=== PATIENT | male | born 1980 | race Caucasian/White ===

== ENCOUNTER → 2019-09-09 22:10 | Outpatient (CLI) | payer MEDICAID, SELFPAY ==
[2019-09-09 18:29] VITALS: BMI 36.4
[2019-09-09 22:27] LABS: Absolute Lymphocyte Count 3.13 X10^3/uL (0.83-4.51); Absolute Neutrophil Count 3.9 X10^3/uL (2.0-7.7); Basophil# 0.09 X10^3/uL; Basophil% 1.1 % (0-1); Eosinophil# 0.37 X10^3/uL; Eosinophils% 4.4 % (0-5); Hematocrit 43.2 % (40-54); Hemoglobin 14.5 g/dL (13.0-16.5); Lymphocyte # 3.13 X10^3/ul (4.0); Lymphocyte % 37.1 % (19-41); Mean Corp Hgb Conc 33.6 g/dL (32-36); Mean Corpuscular Hgb 29.2 pg (27.0-32.0); Mean Corpuscular Volume 86.9 fL (80-94); Mean Platelet Vol. 11.1 fl (6.2-12.0); Monocyte# 0.88 X10^3/uL; Monocyte% 10.4 % (0-10); NRBC Flagged by Analyzer 0 % (0-5); Neutrophil # 3.94 X10^3/uL (2.7-7.7); Neutrophil % 46.8 % (47-70); Platelet Count 230 K/mm3 (150-450); RBC Distribution Width CV 12.3 % (11.6-14.6); RBC Distribution Width SD 39.4 fl (35.1-43.9); Red Blood Count 4.97 M/mm3 (4.6-6.2); White Blood Count 8.4 K/mm3 (4.4-11.0)
[2019-09-09 23:12] LABS: ALB/GLOB Ratio 1.1 RATIO (0.9-2.4); AST(SGOT) 16 U/L (15-37); Alanine Aminotransfer ALT/SGPT 31 U/L (16-61); Albumin, Serum 3.9 g/dL (3.2-5.0); Alkaline Phosphatase 61 U/L (45-117); Anion Gap 4 (5-15); BUN 15 mg/dL (7-18); BUN/Creat Ratio 20.5 RATIO (10-20); Calcium,Total 8.8 mg/dL (8.5-10.1); Chloride 102 mmol/L (98-107); Cholesterol 182 mg/dL (200); Creatinine, Serum 0.73 mg/dL (0.70-1.30); EST Glomerular Filtration Rate 128 mL/min (>60); Est Glom Filt Rate - Afr Amer 155 mL/min (>60); Globulin 3.6 g/dL (2.2-4.2); Glucose 90 mg/dL (74-106); High Density Lipoprotein 35 mg/dL; Potassium 4.6 mmol/L (3.5-5.1); Protein, Total 7.5 g/dL (6.4-8.2); Sodium Level 137 mmol/L (136-145); Triglycerides 579 mg/dL
== END ==
PROVIDERS: Referring Provider Nurse Practitioner; Visit Provider Nurse Practitioner
DX: I10 Essential (primary) hypertension (principal); E78.1 Pure hyperglyceridemia
CPT/HCPCS: 80053; 80061; 85025

== ENCOUNTER → 2020-03-23 | Outpatient (CLI) | payer MEDICAID, SELFPAY ==
[2020-03-23 19:03] VITALS: BMI 38.1
[2020-03-23 22:41] LABS: ALB/GLOB Ratio 1.1 RATIO (0.9-2.4); AST(SGOT) 27 U/L (15-37); Alanine Aminotransfer ALT/SGPT 29 U/L (16-61); Albumin, Serum 3.9 g/dL (3.2-5.0); Alkaline Phosphatase 58 U/L (45-117); Anion Gap 5 (5-15); BUN 18 mg/dL (7-18); Calcium,Total 8.4 mg/dL (8.5-10.1); Chloride 109 mmol/L (98-107); Cholesterol 184 mg/dL (200); EST Glomerular Filtration Rate 72 mL/min (>60); Est Glom Filt Rate - Afr Amer 88 mL/min (>60); Globulin 3.4 g/dL (2.2-4.2); Glucose 101 mg/dL (74-106); High Density Lipoprotein 32 mg/dL; Potassium 3.7 mmol/L (3.5-5.1); Protein, Total 7.3 g/dL (6.4-8.2); Sodium Level 140 mmol/L (136-145); Triglycerides 497 mg/dL
== END | disposition home or self-care (01) ==
PROVIDERS: Referring Provider Nurse Practitioner; Visit Provider Nurse Practitioner
DX: E78.1 Pure hyperglyceridemia (principal); I10 Essential (primary) hypertension
CPT/HCPCS: 80053; 80061

== ENCOUNTER → 2020-10-17 | Outpatient (CLI) | payer MEDICAID, SELFPAY ==
[2020-04-19 15:10] VITALS: BMI 37.7
[2020-10-17 22:47] LABS: Absolute Lymphocyte Count 2.97 X10^3/uL (0.83-4.51); Absolute Neutrophil Count 4.6 X10^3/uL (2.0-7.7); Basophil% 1.1 % (0-1); Eosinophil# 0.41 X10^3/uL; Eosinophils% 4.4 % (0-5); Hemoglobin 12.7 g/dL (13.0-16.5); Lymphocyte # 2.97 X10^3/ul (4.0); Lymphocyte % 31.8 % (19-41); Mean Corp Hgb Conc 32.6 g/dL (32-36); Mean Corpuscular Hgb 29.2 pg (27.0-32.0); Mean Corpuscular Volume 89.7 fL (80-94); Monocyte# 1.22 X10^3/uL; Monocyte% 13.1 % (0-10); NRBC Flagged by Analyzer 0 % (0-5); Neutrophil % 49.3 % (47-70); Platelet Count 243 K/mm3 (150-450); RBC Distribution Width SD 42.6 fl (35.1-43.9); Red Blood Count 4.35 M/mm3 (4.6-6.2); White Blood Count 9.3 K/mm3 (4.4-11.0)
[2020-10-17 22:58] LABS: ALB/GLOB Ratio 1.2 RATIO (0.9-2.4); AST(SGOT) 20 U/L (15-37); Alanine Aminotransfer ALT/SGPT 29 U/L (16-61); Albumin, Serum 4.2 g/dL (3.2-5.0); Alkaline Phosphatase 59 U/L (45-117); Anion Gap 3 (5-15); BUN 15 mg/dL (7-18); BUN/Creat Ratio 15.6 RATIO (10-20); Calcium,Total 8.8 mg/dL (8.5-10.1); Chloride 105 mmol/L (98-107); Cholesterol 172 mg/dL (200); Creatinine, Serum 0.96 mg/dL (0.70-1.30); EST Glomerular Filtration Rate 93 mL/min (>60); Est Glom Filt Rate - Afr Amer 113 mL/min (>60); Globulin 3.5 g/dL (2.2-4.2); Glucose 80 mg/dL (74-106); High Density Lipoprotein 36 mg/dL; Potassium 3.9 mmol/L (3.5-5.1); Protein, Total 7.7 g/dL (6.4-8.2); Sodium Level 138 mmol/L (136-145); Triglycerides 311 mg/dL; Very Low Density Lipoprotein 62 mg/dL (5-40)
== END | disposition home or self-care (01) ==
PROVIDERS: Referring Provider Nurse Practitioner; Visit Provider Nurse Practitioner
DX: I10 Essential (primary) hypertension (principal); E78.1 Pure hyperglyceridemia
CPT/HCPCS: 80053; 80061; 85025

== ENCOUNTER → 2020-11-04 08:56 | Outpatient (CLI) | payer MEDICAID, SELFPAY ==
[2020-10-23 11:01] VITALS: BMI 38.0
--- NOTE | 2020-11-04 08:58 | MRI_ITS ---
STUDY: MRI LEFT KNEE REASON FOR EXAM: Male, 39 years old. Pain, instability. TECHNIQUE: Standardized fat and water weighted pulse sequences were obtained in all 3 orthogonal planes. COMPARISON: X-ray 10/23/2020. FINDINGS: 5 mm tear of the meniscal body extending to superior and inferior articular surfaces. Normal hyaline cartilage of the medial femorotibial compartment. Normal medial femoral condyle and tibial plateau. Normal medial collateral ligamentous complex (MCL). Normal distal semimembranosus, gracilis and semitendinosus tendons. Normal lateral meniscus. Normal hyaline cartilage of the lateral femorotibial compartment. Normal lateral femoral condyle and tibial plateau. Normal proximal tibiofibular articulation. Normal lateral collateral (fibular) ligament. Normal popliteus tendon. Normal biceps femoris tendon. Normal anterior cruciate ligament (ACL). Normal posterior cruciate ligament (PCL). Normal congruent patellofemoral articulation. Normal hyaline cartilage of the patellofemoral compartment. Normal medial and lateral patellar retinaculum. Normal quadriceps tendon. Normal patellar tendon. Small joint effusion. The soft tissues are unremarkable. The otherwise visualized osseous structures are unremarkable. MRI/Lower Ext Joint Only (Routine) IMPRESSION: 1. Medial meniscal tear. 2. Joint effusion. Electronically Signed: Mercy Hale MD at 22:14 EST Tel , Service support ,
== END ==
PROVIDERS: PCP Nurse Practitioner; Referring Provider Orthopaedic Surgery; Visit Provider Orthopaedic Surgery
DX: S83.241A Other tear of medial meniscus, current injury, right knee, initial encounter (principal); M25.561 Pain in right knee
CPT/HCPCS: 73721

== ENCOUNTER 2020-11-28 07:11 | Day surgery (SDC) | payer MEDICAID, SELFPAY ==
[2020-10-23 11:01] VITALS: BMI 38.0
[2020-11-28] VITALS (7 sets, daily range): BP systolic 114–147; BP diastolic 59–82; PULSE 69–89; RESP 16–18; TEMP 36.3–37.9; O2SAT 93–100; BMI 35.9
[2020-11-28] MEDS: Lactated Ringers 1,000 ML 100 ML IV (07:53)
--- NOTE | 2020-11-28 10:28 | HP.PCM_ITS ---
History and Physical Date of Admission: 11/28/20 Intake Intake Visit Reasons: Left knee Is patient in pain?: Yes Allergies grass pollen Allergy (Mild, Verified 11/20/20 09:42) Itching, asthma attack ragweed pollen Allergy (Mild, Verified 11/20/20 09:42) Itching, asthma attack tree and shrub pollen Allergy (Mild, Verified 11/20/20 09:42) Itching, asthma attack bupropion Adverse Reaction (Severe, Verified 11/20/20 09:42) anger PFSH Medical History GERD (gastroesophageal reflux disease) (Acute) Hypertriglyceridemia (Acute) Metabolic syndrome (Acute) Opioid abuse, in remission (Acute) Hypertension (Chronic) Surgical History (Updated 10/23/20 @ 11:09 by Columba Mendoza) H/O rotator cuff surgery (Acute) Family History (Updated 10/23/20 @ 11:10 by Columba Mendoza) Mother Hypertension Grandmother Hypertension Grandfather Hypertension Aunt Hypertension Uncle CVA (cerebral vascular accident) Other Crohn's colitis Diverticulitis Family history of high cholesterol Heart disease IBS (irritable bowel syndrome) Migraine Osteoarthritis Social History (Updated 11/20/20 @ 11:[address] Jameson Lamb, ) household members: spouse, children housing: house current occupational status: employed Smoking Status: Current every day smoker tobacco type: cigarettes alcohol intake: current alcohol intake frequency: 0-2 drinks per day what type of physical activity do you participate in: none do you feel safe at home: Yes HPI Left knee: Details: Parts of this documentation were recorded by a scribe, this documentation accurately reflects the service provided and the decisions made by me, Dr. Jameson Lamb DO 11/20/20 [id number]. MAXINE SCHAEFER is a 39 year old M here today for a followup after left knee MRI. Patient notes that he continues to have knee pain and continues to have the same symptoms. He has knee popping and instability. Patient notes that he has increased pain with twisting. He had an MRI which is here for review. ROS Musc Reports joint pain, Denies numbness, Denies tingling Skin/Breast Reports system reviewed and no additional complaints, except as docu Neuro Yes system reviewed and no additional complaints, except as docu, No numbness, No tingling Ortho Exam Left Knee Skin/Wound: Yes CDI, No ecchymosis, No erythema, No swelling Examination: Yes med jt line tenderness, Yes Pain with flexion Supplemental Info 11/04/2020 MRI left knee: as read by radiologist 5 mm tear of the meniscal body extending to the superior and inferior articular surfaces, joint effusion Assessment & Plan Problems 1. Other tear of medial meniscus of left knee as current injury, subsequent encounter S83.940D Plan Educated the patient about the anatomy of the knee and etiology of his pain. Sp paz with him about his options- recommended an arthroscopy for a meniscus repair vs menisectomy. He is will be non-weightbearing for 6 weeks with a meniscus repair. Reviewed the pre-operative plans with the patient. Risks and benefits of the procedure were fully explained, including but not limited to infection, neurovascular injury, continued pain, arthritis, stiffness, need for further surgery, re-injury, DVT, PE, general risks of anesthesia, and loss of limb or life. The patient understands all the risks and does wish to proceed with written consent. Follow up 2 week post op or sooner if pain, swelling, numbness or associated symptoms, or concerns develop. All questions answered. Patient in agreement of plan. Coding Level of Care Code Off vis,est,level 3 Diagnoses Other tear of medial meniscus of left knee as current injury, subsequent encounter S83.321D ??Encounter type: subsequent encounter ??Meniscus tear of knee type: other type ??Tear current or old: current I have re-examined the patient. There are no clinical changes since date of exam Procedure Criteria Procedure Type: Elective COVID Risk Discussion: The surgeon/proceduralist and patient have discussed in detail the risk of exposure to and/or potential harm posed by the COVID-19 virus with having a surgery/procedure at this time versus the risk of delaying the surgery/procedure. It is not possible to know either the risk of delaying the surgery or procedure or chance of getting an infection with perfect accuracy, but a joint decision was made between the patient and the surgeon/proceduralist to proceed at this time with the scheduled surgery/procedure as indicated on the consent form.
[2020-11-28] MEDS: Epinephrine (1 mg/ml) 1 MG/ML VIAL (11:17)
[2020-11-28] MEDS: MethylPREDNISolone Acetate 40 MG/ML Vial IM (11:18)
[2020-11-28] MEDS: Bupiv/Epi 0.25% 30 ML Vial (11:18)
[2020-11-28] MEDS: Bupivacaine 0.5% PF 10 ML VIAL (11:18)
--- NOTE | 2020-11-28 11:21 | PCM.DC.ORTHO ---
Discharge Diet: No Restrictions Weight Bearing Status: Weight bearing as tolerated Call your doctor if you observe: Shortness of breath, Chest pain Additional Instructions: Ice and elevate next 72 hours .keep dressing on clean and dry for 48 hours then may remove begin showering daily but do not submerge in tub or pool. Must keep incisional area is clean until completely healed . after shower may apply Band-Aids . Encourage knee range of motion weightbearing as tolerated, use crutches until confident in knee then may discontinue. No strenuous activity. When not ambulating keep iced and elevated next 72 hours. No pain medication was prescribed based on patient request please take Motrin 600 mg every 8 hours and Tylenol 1000 mg every 6 hours to control pain Allergies/Adverse Reactions: Allergies grass pollen Allergy (Mild, Verified 11/27/20 09:01) Itching, asthma attack ragweed pollen Allergy (Mild, Verified 11/27/20 09:01) Itching, asthma attack tree and shrub pollen Allergy (Mild, Verified 11/27/20 09:01) Itching, asthma attack bupropion Adverse Reaction (Severe, Verified 11/27/20 09:01) anger Medications to take at Discharge multivitamin with minerals-folic acid 200 mcg chewable tablet 200 mcg PO DAILY tab 09/24/18 albuterol sulfate 90 mcg/actuation aerosol inhaler 2 puff INHALATION Q4H PRN 30 Days #8 g 09/09/19 amlodipine 5 mg tablet 5 mg PO DAILY #30 tab 10/17/20 famotidine 40 mg tablet 40 mg PO DAILY #30 tab 10/17/20 fenofibrate nanocrystallized 145 mg tablet 145 mg PO DAILY #30 tab 10/17/20 lisinopril 40 mg tablet 40 mg PO DAILY #30 tab 10/17/20 omega-3 fatty acids 1,000 mg capsule 2,000 mg PO BID #360 cap 10/17/20 aspirin 81 mg tablet,delayed release 81 mg PO DAILY 10/23/20 Lansoprazole 30 mg PO QHS 11/27/20 Primary Care Physician: Grace Stephens INTENSIVE CARE UNIT REGISTERED NURSE, INTENSIVE CARE UNIT REGISTERED NURSE-C [Primary Care Provider] - Test Results: Test results from this visit will be discussed in further detail at your follow-up appointment, if applicable.
--- NOTE | 2020-11-28 11:31 | OP.PCM_ITS ---
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 Risk benefits and alternatives of the procedure were reviewed including risk of bleeding infection nerve artery tissue damage need for further surgery continued pain and expected postoperative course. Procedure: The patient was met in the preoperative holding area. The operative extremity was identified by both patient and physician and family and marked. Patient was brought back to the operating room on a wheeled cart and transferred to the operating table in the supine position. Anesthesia was started. A well- padded tourniquet was placed on the operative extremity. A lower extremity leg dubon was secured to the operative extremity. The contralateral extremity was well-padded and the end of the bed was flexed to 90 degrees. The patient was prepped and draped in the usual sterile fashion. A timeout was called to ensure the proper patient, procedure, and extremity were being contemplated. 0.5% Marcaine with epinephrine was injected into the planned incisional areas under the skin only. An Esmarch was used to exsanguinate the extremity and the tourniquet was inflated. An 11 blade scalpel was used to make a stab incision in the anterior lateral portal. The arthroscope was inserted into the intercondylar notch and inflow and outflow tubes were attached. Arthroscopic visualization began. The medial compartment was entered. An 18-gauge spinal needle was used to establish the placement for anterior medial portal. An 11 blade scalpel was used to make a stab incision. Blunt probe was inserted followed by a meniscal probe. Immediately there was noted to be complex tearing of the body of the medial meniscus and a radial and horizontal fashion with the use of arthroscopic shaver biting instruments and ArthroCare wand partial medial meniscectomy and chondroplasty of loose cartilage flaps the medial compartment were performed the ACL was found to be intact. The lateral compartment was entered free of meniscal or cartilage pathology The arthroscope was switched to the medial portal to complete the procedure. The medial and lateral gutters were inspected and were free of loose bodies. The patellofemoral joint was inspected grade III chondromalacia of the undersurface of the patella and trochlea chondroplasty was performed of loose cartilage flaps. There was good patellar tracking. The knee was thoroughly irrigated and drained. An intra- articular injection with 8 cc 0.5% Marcaine plain and 40 mg of Depo-Medrol was injected intra-articularly. The arthroscope was removed the portals were closed with 3-0 nylon arthroscopic stitches. Followed by Xeroform 4 x 4's ABDs web roll and an John wrap. The tourniquet was let down and the drapes were removed. All counts were correct. The patient was brought back to the PACU in stable condition.
== END 2020-11-28 13:01 | disposition home or self-care (01) ==
LOC: SDC 07:11 → AC 07:11
PROVIDERS: PCP Nurse Practitioner; Referring Provider Orthopaedic Surgery; Visit Provider Orthopaedic Surgery
PROC: (CPT 29870; principal; 2020-11-28 09:40)
DX: S83.232A Complex tear of medial meniscus, current injury, left knee, initial encounter (principal); X58.XXXA Exposure to other specified factors, initial encounter; Y93.9 Activity, unspecified; Y92.9 Unspecified place or not applicable; Y99.9 Unspecified external cause status; M22.42 Chondromalacia patellae, left knee; I10 Essential (primary) hypertension; N17.9 Acute kidney failure, unspecified; J45.909 Unspecified asthma, uncomplicated; F11.11 Opioid abuse, in remission; F17.210 Nicotine dependence, cigarettes, uncomplicated; Z20.822 Contact with and (suspected) exposure to COVID-19; Z79.82 Long term (current) use of aspirin; Z79.899 Other long term (current) drug therapy
CPT/HCPCS: 01400; 29881; 87426; C9803; J7120

== ENCOUNTER → 2022-01-04 | Outpatient (CLI) | payer MEDICAID, SELFPAY ==
[2022-01-04 22:06] LABS: Absolute Lymphocyte Count 2.88 X10^3/uL (0.83-4.51); Absolute Neutrophil Count 6.2 X10^3/uL (2.0-7.7); Basophil# 0.09 X10^3/uL; Basophil% 0.8 % (0-1); Eosinophils% 4.7 % (0-5); Hematocrit 37.9 % (40-54); Hemoglobin 12.7 g/dL (13.0-16.5); Lymphocyte # 2.88 X10^3/ul (0.83-4.51); Lymphocyte % 26.9 % (19-41); Mean Corp Hgb Conc 33.5 g/dL (32-36); Mean Corpuscular Hgb 28.7 pg (27.0-32.0); Mean Corpuscular Volume 85.7 fL (80-94); Mean Platelet Vol. 10.8 fl (6.2-12.0); Monocyte% 9.3 % (0-10); NRBC Flagged by Analyzer 0 % (0-5); Neutrophil # 6.22 X10^3/uL (2.7-7.7); Platelet Count 240 K/mm3 (150-450); RBC Distribution Width CV 13.1 % (11.6-14.6); RBC Distribution Width SD 40.8 fl (35.1-43.9); Red Blood Count 4.42 M/mm3 (4.6-6.2); White Blood Count 10.7 K/mm3 (4.4-11.0)
[2022-01-04 22:27] LABS: ALB/GLOB Ratio 1.1 RATIO (0.9-2.4); AST(SGOT) 19 U/L (15-37); Alanine Aminotransfer ALT/SGPT 28 U/L (16-61); Albumin, Serum 3.9 g/dL (3.2-5.0); Alkaline Phosphatase 67 U/L (45-117); BUN 16 mg/dL (7-18); BUN/Creat Ratio 15.8 RATIO (10-20); Calcium,Total 8.8 mg/dL (8.5-10.1); Cholesterol 167 mg/dL (200); Creatinine, Serum 1.01 mg/dL (0.70-1.30); EST Glomerular Filtration Rate 87 mL/min (>60); Est Glom Filt Rate - Afr Amer 106 mL/min (>60); Globulin 3.5 g/dL (2.2-4.2); Glucose 120 mg/dL (74-106); Protein, Total 7.4 g/dL (6.4-8.2)
[2022-01-04 22:28] LABS: Anion Gap 7 (5-15); Chloride 105 mmol/L (98-107); High Density Lipoprotein 36 mg/dL; Potassium 3.5 mmol/L (3.5-5.1); Sodium Level 137 mmol/L (136-145); Triglycerides 320 mg/dL; Very Low Density Lipoprotein 64 mg/dL (5-40)
== END | disposition home or self-care (01) ==
PROVIDERS: PCP Nurse Practitioner; Visit Provider Nurse Practitioner
DX: E78.1 Pure hyperglyceridemia (principal); K21.00 Gastro-esophageal reflux disease with esophagitis, without bleeding
CPT/HCPCS: 80053; 80061; 85025

== ENCOUNTER → 2023-02-12 | Outpatient (CLI) | payer MEDICAID, SELFPAY ==
[2023-02-12 20:36] LABS: Absolute Lymphocyte Count 2.94 X10^3/uL (0.83-4.51); Absolute Neutrophil Count 3.8 X10^3/uL (2.0-7.7); Basophil# 0.09 X10^3/uL; Basophil% 1.1 % (0-1); Eosinophil# 0.39 X10^3/uL; Eosinophils% 4.7 % (0-5); Hematocrit 37.6 % (40-54); Hemoglobin 12.5 g/dL (13.0-16.5); Lymphocyte # 2.94 X10^3/ul (0.83-4.51); Lymphocyte % 35.7 % (19-41); Mean Corp Hgb Conc 33.2 g/dL (32-36); Mean Corpuscular Hgb 28.9 pg (27.0-32.0); Mean Platelet Vol. 10.6 fl (6.2-12.0); Monocyte# 0.94 X10^3/uL; Monocyte% 11.4 % (0-10); NRBC Flagged by Analyzer 0 % (0-5); Neutrophil # 3.82 X10^3/uL (2.7-7.7); Neutrophil % 46.5 % (47-70); Platelet Count 233 K/mm3 (150-450); RBC Distribution Width CV 13.5 % (11.6-14.6); RBC Distribution Width SD 43.4 fl (35.1-43.9); Red Blood Count 4.32 M/mm3 (4.6-6.2); White Blood Count 8.2 K/mm3 (4.4-11.0)
[2023-02-12 21:19] LABS: ALB/GLOB Ratio 1.2 RATIO (0.9-2.4); AST(SGOT) 23 U/L (15-37); Alanine Aminotransfer ALT/SGPT 34 U/L (16-61); Albumin, Serum 3.9 g/dL (3.2-5.0); Alkaline Phosphatase 65 U/L (45-117); Anion Gap 7 (5-15); BUN 14 mg/dL (7-18); BUN/Creat Ratio 14.8 RATIO (10-20); Calcium,Total 9.3 mg/dL (8.5-10.1); Chloride 105 mmol/L (98-107); Cholesterol 158 mg/dL (200); Creatinine, Serum 0.94 mg/dL (0.70-1.30); EST Glomerular Filtration Rate 94 mL/min (>60); Est Glom Filt Rate - Afr Amer 114 mL/min (>60); Globulin 3.3 g/dL (2.2-4.2); Glucose 120 mg/dL (74-106); High Density Lipoprotein 36 mg/dL; Potassium 4.1 mmol/L (3.5-5.1); Protein, Total 7.2 g/dL (6.4-8.2); Sodium Level 140 mmol/L (136-145); Triglycerides 242 mg/dL; Very Low Density Lipoprotein 48 mg/dL (5-40)
== END | disposition home or self-care (01) ==
PROVIDERS: PCP Nurse Practitioner; Visit Provider Nurse Practitioner
DX: Z00.00 Encounter for general adult medical examination without abnormal findings (principal)
CPT/HCPCS: 80053; 80061; 85025

== ENCOUNTER → 2024-02-12 | Outpatient (CLI) | payer OTHER, SELFPAY ==
[2024-02-12 21:31] LABS: Absolute Lymphocyte Count 2.94 X10^3/uL (0.83-4.51); Absolute Neutrophil Count 4.6 X10^3/uL (2.0-7.7); Basophil# 0.08 X10^3/uL; Basophil% 0.9 % (0-1); Eosinophil# 0.48 X10^3/uL; Eosinophils% 5.3 % (0-5); Hematocrit 38.9 % (40-54); Hemoglobin 12.8 g/dL (13.0-16.5); Lymphocyte # 2.94 X10^3/ul (0.83-4.51); Lymphocyte % 32.4 % (19-41); Mean Corp Hgb Conc 32.9 g/dL (32-36); Mean Corpuscular Hgb 28.6 pg (27.0-32.0); Mean Corpuscular Volume 86.8 fL (80-94); Monocyte# 0.89 X10^3/uL; Monocyte% 9.8 % (0-10); NRBC Flagged by Analyzer 0 % (0-5); Neutrophil # 4.63 X10^3/uL (2.7-7.7); Neutrophil % 50.9 % (47-70); Platelet Count 258 K/mm3 (150-450); RBC Distribution Width CV 13.4 % (11.6-14.6); RBC Distribution Width SD 42.2 fl (35.1-43.9); Red Blood Count 4.48 M/mm3 (4.6-6.2); White Blood Count 9.1 K/mm3 (4.4-11.0)
[2024-02-12 21:48] LABS: ALB/GLOB Ratio 1.1 RATIO (0.9-2.4); AST(SGOT) 21 U/L (15-37); Alanine Aminotransfer ALT/SGPT 33 U/L (16-61); Albumin, Serum 3.9 g/dL (3.2-5.0); Alkaline Phosphatase 70 U/L (45-117); Anion Gap 6 (5-15); BUN 12 mg/dL (7-18); BUN/Creat Ratio 12.6 RATIO (10-20); Calcium,Total 9.3 mg/dL (8.5-10.1); Chloride 105 mmol/L (98-107); Cholesterol 162 mg/dL (200); Creatinine, Serum 0.96 mg/dL (0.70-1.30); EST Glomerular Filtration Rate 92 mL/min (>60); Est Glom Filt Rate - Afr Amer 112 mL/min (>60); Ferritin 141 ng/mL (26-388); Globulin 3.7 g/dL (2.2-4.2); Glucose 128 mg/dL (74-106); High Density Lipoprotein 33 mg/dL; Iron 72 ug/dL (65-175); Iron Binding Capacity,Total 407 ug/dL (250-450); Luteinizing Hormone 7.9 mIU/mL; PERCENT IRON SATURATION 17.7 % (15.0-55.0); Potassium 3.9 mmol/L (3.5-5.1); Protein, Total 7.6 g/dL (6.4-8.2); Sodium Level 137 mmol/L (136-145); Thyroid Stim Hormone (TSH) 2.57 uIU/mL (0.358-3.74); Triglycerides 329 mg/dL; Very Low Density Lipoprotein 66 mg/dL (5-40)
[2024-02-14 06:11] LABS: Transferrin 311 mg/dL (177-329)
== END | disposition home or self-care (01) ==
PROVIDERS: PCP Nurse Practitioner; Visit Provider Nurse Practitioner
DX: K21.00 Gastro-esophageal reflux disease with esophagitis, without bleeding (principal); E78.1 Pure hyperglyceridemia; I10 Essential (primary) hypertension; D64.9 Anemia, unspecified; R53.83 Other fatigue
CPT/HCPCS: 80053; 80061; 82728; 83002; 83540; 83550; 84443; 84466; 85025

== ENCOUNTER → 2024-04-29 | Outpatient (CLI) | payer MEDICAID, SELFPAY ==
[2024-04-29 21:52] LABS: Absolute Lymphocyte Count 2.95 X10^3/uL (0.83-4.51); Absolute Neutrophil Count 4.8 X10^3/uL (2.0-7.7); Basophil% 1.1 % (0-1); Eosinophil# 0.39 X10^3/uL; Eosinophils% 4.2 % (0-5); Hematocrit 38.1 % (40-54); Hemoglobin 12.5 g/dL (13.0-16.5); Lymphocyte # 2.95 X10^3/ul (0.83-4.51); Lymphocyte % 31.4 % (19-41); Mean Corp Hgb Conc 32.8 g/dL (32-36); Mean Corpuscular Hgb 28.2 pg (27.0-32.0); Mean Platelet Vol. 10.8 fl (6.2-12.0); Monocyte# 1.12 X10^3/uL; Monocyte% 11.9 % (0-10); NRBC Flagged by Analyzer 0 % (0-5); Neutrophil # 4.75 X10^3/uL (2.7-7.7); Neutrophil % 50.7 % (47-70); Platelet Count 285 K/mm3 (150-450); RBC Distribution Width CV 13.5 % (11.6-14.6); RBC Distribution Width SD 42.3 fl (35.1-43.9); Red Blood Count 4.43 M/mm3 (4.6-6.2); White Blood Count 9.4 K/mm3 (4.4-11.0)
[2024-04-29 22:12] LABS: AST(SGOT) 12 U/L (15-37); Alanine Aminotransfer ALT/SGPT 30 U/L (16-61); Albumin, Serum 3.7 g/dL (3.2-5.0); Alkaline Phosphatase 59 U/L (45-117); Anion Gap 4 (5-15); BUN 14 mg/dL (7-18); BUN/Creat Ratio 16.8 RATIO (10-20); Calcium,Total 9.4 mg/dL (8.5-10.1); Chloride 106 mmol/L (98-107); Creatinine, Serum 0.83 mg/dL (0.70-1.30); EST Glomerular Filtration Rate 108 mL/min (>60); Est Glom Filt Rate - Afr Amer 131 mL/min (>60); Globulin 3.6 g/dL (2.2-4.2); Glucose 96 mg/dL (74-106); Potassium 4.2 mmol/L (3.5-5.1); Protein, Total 7.3 g/dL (6.4-8.2); Sodium Level 138 mmol/L (136-145)
== END | disposition home or self-care (01) ==
PROVIDERS: Referring Provider Nurse Practitioner; Visit Provider Nurse Practitioner
DX: I10 Essential (primary) hypertension (principal); E11.65 Type 2 diabetes mellitus with hyperglycemia; D51.9 Vitamin B12 deficiency anemia, unspecified; E78.1 Pure hyperglyceridemia; S37.009A Unspecified injury of unspecified kidney, initial encounter; X58.XXXA Exposure to other specified factors, initial encounter
CPT/HCPCS: 80053; 83036; 85025

== ENCOUNTER 2025-01-03 11:35 | Day surgery (SDC) | payer BC, SELFPAY ==
[2025-01-03] VITALS (14 sets, daily range): BP systolic 136–170; BP diastolic 62–118; PULSE 76–109; RESP 16–92; TEMP 35.9–37.4; O2SAT 85–96; BMI 39.7
[2025-01-03] MEDS: Lactated Ringers 1,000 ML 15 ML IV (12:13)
--- NOTE | 2025-01-03 12:16 | PCM.HP.STD ---
HPI - General General Date of Admission: 01/03/25 Date of Service: 01/03/25 Chief Complaint: Umbilical hernia HPI Narrative MAXINE SCHAEFER, is a 44 M who presents for robotic repair of an umbilical hernia. Patient has had this hernia for some time and this was becoming larger and causing him increasing pain and discomfort. He was seen in the office and I offered him a robotic repair. [facility] Medical History (Updated 12/29/24 @ 09:33 by Arpita Brooks) Wears glasses Alcohol use Gastric reflux Smoker Asthma Chronic cough History of irregular heartbeat Anemia Opioid abuse, in remission GERD (gastroesophageal reflux disease) Metabolic syndrome Hypertriglyceridemia Hypertension Home Medications ?Medication ?Instructions ?Recorded ?Last Taken ?Type aspirin 81 mg tablet,delayed 81 mg PO DAILY 10/23/20 12/30/24 History release amlodipine 5 mg tablet 5 mg PO DAILY #30 tabs 02/12/24 01/03/25 10:00 Rx famotidine 40 mg tablet 40 mg PO DAILY #30 tabs 02/12/24 01/03/25 Rx fenofibrate nanocrystallized 145 145 mg PO DAILY #30 tabs 02/12/24 Unknown Rx mg tablet lansoprazole 30 mg capsule,delayed 30 mg PO QHS #30 caps 02/12/24 01/02/25 Rx release montelukast 10 mg tablet 10 mg PO QHS #30 tabs 02/12/24 01/02/25 Rx omega-3 fatty acids 1,000 mg 3,000 mg (3 x 1,000 mg) PO DAILY 02/12/24 Unknown Rx capsule #90 caps albuterol sulfate 90 mcg/actuation 2 puff inhalation Q4H PRN asthma 1 12/21/24 Unknown Rx aerosol inhaler (Ventolin HFA) month #8 grams cetirizine 10 mg tablet (24Hour 10 mg PO DAILY PRN allergies 01/03/25 01/03/25 History Allergy) multivitamin (Daily Multi-Vitamin 1 tab PO DAILY 01/03/25 Unknown History tablet) Allergy/AdvReac Type Severity Reaction Status Date / Time grass pollen Allergy Mild Itching, Verified 01/03/25 12:07 asthma attack ragweed pollen Allergy Mild Itching, Verified 01/03/25 12:07 asthma attack tree and shrub pollen Allergy Mild Itching, Verified 01/03/25 12:07 asthma attack bupropion AdvReac Severe anger Verified 01/03/25 12:07 Family History Mother Hypertension Grandmother Hypertension Grandfather Hypertension Aunt Hypertension Uncle CVA (cerebral vascular accident) Other Crohn's colitis Diverticulitis Family history of high cholesterol Heart disease IBS (irritable bowel syndrome) Migraine Osteoarthritis Surgical History (Updated 12/29/24 @ 09:33 by Arpita Brooks) Hx of tonsillectomy Hx of knee surgery H/O rotator cuff surgery Social History household members: spouse and children housing: house current occupational status: employed Smoking Status: Current every day smoker tobacco type: cigarettes alcohol intake: current alcohol intake frequency: 0-2 drinks per day what type of physical activity do you participate in: none do you feel safe at home: Yes ROS Constitutional Constitutional: Reports systems reviewed and no addt'l complaints, except as documented Eyes Eyes: Reports systems reviewed and no addt'l complaints, except as documented ENT HEENT: Reports systems reviewed and no addt'l complaints, except as documented Cardiovascular Cardiovascular: Reports systems reviewed and no addt'l complaints, except as documented Respiratory/Chest Respiratory/Chest: Reports systems reviewed and no addt'l complaints, except as documented Gastrointestinal Gastrointestinal: Reports systems reviewed and no addt'l complaints, except as documented Assessment & Plan Assessment/Plan (1) Umbilical hernia: QUALIFIERS: Obstruction and gangrene presence: without obstruction or gangrene Qualified Code(s): K42.9 - Umbilical hernia without obstruction or gangrene PLAN: Plan The patient is a 44-year-old male with an umbilical hernia. I offered him robotic umbilical hernia repair surgery with mesh. We discussed the details of the planned procedure and he wishes to proceed. This will be beginning shortly. Charges/Coding Visit Charges Inpatient E&M: 69402 Init Hosp L2
--- NOTE | 2025-01-03 12:49 | PCM.PRE.AN2 ---
ASA Classification* ASA Classification ASA Classification: 3 Assessment & Plan Anesthesia* Anesthesia Assessment Anesthesia Assessment: Discussed sedation and/or anesthesia options, risks, benefits, and alternatives with patient/parents/legal guardian/POA. Questions invited. The patient/parents/legal guardian/POA seems to understand and agrees to proceed with anesthesia plan. Reviewed the physical assessment, medical history, allergy history and patient home medications list prior to surgery/procedure/anesthetic and documented any changes. Performed airway and anesthesia risk assessments. Anesthesia Type Anesthesia Type: General History Source History Obtained from:: Patient and Chart Anesthesia Focused Assessment* Temperature: 97.7 F Pulse Rate: 76 Blood Pressure: 143/77 Respiratory Rate: 16 Pulse Ox: 96 Oxygen Delivery Method: Room Air Airway Assessment Mouth opens: >3 cm Mallampati Score: IV Teeth Condition: Missing (Patient has several missing molars on the left side. Rest are tight.) Neck Range of motion (ROM): Full ROM Focused Labs Anesthesia Preop lab: CBC WBC 9.4 K/mm3 (4.4-11.0) 04/29/24 15:42 04/29/24 RBC 4.43 M/mm3 (4.6-6.2) L 04/29/24 15:42 04/29/24 Hgb 12.5 g/dL (13.0-16.5) L 04/29/24 15:42 04/29/24 Hct 38.1 % (40-54) L 04/29/24 15:42 04/29/24 Plt Count 285 K/mm3 (150-450) 04/29/24 15:42 04/29/24 CHEMISTRY Potassium 4.2 mmol/L (3.5-5.1) 04/29/24 15:42 04/29/24 Sodium 138 mmol/L (136-145) 04/29/24 15:42 04/29/24 BUN 14 mg/dL (7-18) 04/29/24 15:42 04/29/24 Creatinine 0.83 mg/dL (0.70-1.30) 04/29/24 15:42 04/29/24 Glucose 96 mg/dL (74-106) 04/29/24 15:42 04/29/24 TSH 2.57 uIU/mL (0.358-3.74) 02/12/24 21:05 02/12/24 COAG Pre-Assessment Diagnosis/Proposed Procedure Planned Operative Procedure(s): Lap Robotic Umb/Ventral Hernia umbilical hernia with mesh Anesthesia History Anesthesia History - slot floor person: Anesthesia History - slot floor person Hx Hospitalization Yes: DEHYDRATION/KIDNEY 12/29/24 09:34 FUNCTION Any Problems With Anesthesia No 12/29/24 09:34 Cholinesterase deficiency No 12/29/24 09:34 You/Your Family Experience No 12/29/24 09:34 fever (hyperthermia) with Relationship Recent Exposure to Contagious No 01/03/25 12:18 Disease Does patient have nerve No 12/29/24 09:34 stimulator Patient instructed to have device shut off --Does patient have Pacemaker No 01/03/25 12:18 or ICD? When Was Last Pacemaker Check QUESTION #4 FULL TEXT: You/Your Family Experience fever (hyperthermia) with Anesthesia Last Oral Intake Last Oral intake: Last Oral Intake NPO since 23:00 01/03/25 12:18 Meds taken in AM with sips of Yes 01/03/25 12:18 water? Meds patient instructed to zyrtec, famotidine, 01/03/25 12:18 take am of surgery amlodipine PONV PONV - slot floor person: PONV - slot floor person Female No 12/29/24 09:34 HX of Motion Sickness Yes 12/29/24 09:34 HX of N/V After Surgery No 12/29/24 09:34 Non-Smoker No 12/29/24 09:34 Duration of Surgery greater Yes 12/29/24 09:34 than 60 minutes Number of Risk Factors 2 12/29/24 09:34 PONV Score Moderate Risk 12/29/24 09:34 Height & Weight Height & Weight: Anesthesia: Height & Weight Height 6 ft 2 in 01/03/25 12:18 Weight: 140.5 kg 01/03/25 12:18 Body Mass Index (BMI) 39.7 01/03/25 12:18 Respiratory Assessment Respiratory Assessment - slot floor person: Respiratory Tract Infection Hx - slot floor person Hx Respiratory Tract Infection No 12/29/24 09:34 Any additional information?: Yes Hx Respiratory Tract Infection: Yes (Patient had bronchitis couple weeks ago. It is resolved at this time.) STOP Sleep Apnea STOP Sleep Apnea - slot floor person: STOP Sleep Apnea - slot floor person Hx Hypertension Yes: controlled with meds 12/29/24 09:34 Hx Sleep Apnea No 12/29/24 09:34 CPAP BIPAP Do you snore loudly (louder No 12/29/24 09:34 than talking or can be heard Do you often feel tired/ No 12/29/24 09:34 fatigued/ sleepy during daytime? Has anyone observed you stop No 12/29/24 09:34 breathing during sleep? STOP Results Negative 12/29/24 09:34 QUESTION #5 FULL TEXT : Do you snore loudly (louder than talking or can be heard through closed doors)? Tobacco Use History Tobacco Use History - slot floor person: Tobacco Use History - slot floor person Tobacco Use Smoking Status Current every day smoker 12/29/24 09:34 Hx Tobacco Use Yes 12/29/24 09:34 Years Smoking Packs Smoked per Day Smoking Cessation Date was within the last 15 years Hx Smoking Cessation Date Hx Smoking Cessation Counseling Any additional information?: Yes Smoking Status: Current every day smoker (Patient smoked today.) Hematologic Medial History Hematologic Hx - slot floor person: Hematologic Medical Hx - emergency department aide Hx of Blood Transfusion No 12/29/24 09:34 Hx of Transfusion in last 3 No 12/29/24 09:34 Months Date of Last Transfusion (if within last 3 months) Ever experience any problems No 12/29/24 09:34 with transfusion(s)? Specify any problems Hx of Preganancy in last 3 N/A 12/29/24 09:34 Months Nurse Filling Out Transfusion VCHRISTIN 12/29/24 09:34 & Questions: Date: 12/29/24 12/29/24 09:34 Time: 09:35 12/29/24 09:34 Patient unable to answer at this time (ie. confused, unrespo /Reproduction History /Reproductive History - slot floor person: /Reproductive Hx- slot floor person Hx Now Gestational Age (in weeks): EDC: Hx Hx Para Hx Section SAB Active Medications Active Medications: Current Medications Generic Name Dose Route Start Last Admin Trade Name Freq PRN Reason Stop Dose Admin Cefazolin Sodium 3 gm/ Sodium 115 mls @ 150 mls/hr 01/03/25 13:00 Chloride IV 01/03/25 13:45 INTRAOP ONE Lactated Ringer's 1,000 mls @ 15 mls/hr 01/03/25 11:45 01/03/25 12:13 IV 15 mls/hr .Q48H MARIA A Administration PFSH Medical History Wears glasses Alcohol use Gastric reflux Smoker Asthma Chronic cough History of irregular heartbeat Anemia Opioid abuse, in remission GERD (gastroesophageal reflux disease) Metabolic syndrome Hypertriglyceridemia Hypertension Home Medications ?Medication ?Instructions ?Recorded ?Last Taken ?Type aspirin 81 mg tablet,delayed 81 mg PO DAILY 10/23/20 12/30/24 History release amlodipine 5 mg tablet 5 mg PO DAILY #30 tabs 02/12/24 01/03/25 10:00 Rx famotidine 40 mg tablet 40 mg PO DAILY #30 tabs 02/12/24 01/03/25 Rx fenofibrate nanocrystallized 145 145 mg PO DAILY #30 tabs 02/12/24 Unknown Rx mg tablet lansoprazole 30 mg capsule,delayed 30 mg PO QHS #30 caps 02/12/24 01/02/25 Rx release montelukast 10 mg tablet 10 mg PO QHS #30 tabs 02/12/24 01/02/25 Rx omega-3 fatty acids 1,000 mg 3,000 mg (3 x 1,000 mg) PO DAILY 02/12/24 Unknown Rx capsule #90 caps albuterol sulfate 90 mcg/actuation 2 puff inhalation Q4H PRN asthma 1 12/21/24 Unknown Rx aerosol inhaler (Ventolin HFA) month #8 grams cetirizine 10 mg tablet (24Hour 10 mg PO DAILY PRN allergies 01/03/25 01/03/25 History Allergy) multivitamin (Daily Multi-Vitamin 1 tab PO DAILY 01/03/25 Unknown History tablet) Allergy/AdvReac Type Severity Reaction Status Date / Time grass pollen Allergy Mild Itching, Verified 01/03/25 12:07 asthma attack ragweed pollen Allergy Mild Itching, Verified 01/03/25 12:07 asthma attack tree and shrub pollen Allergy Mild Itching, Verified 01/03/25 12:07 asthma attack bupropion AdvReac Severe anger Verified 01/03/25 12:07 Family History Mother Hypertension Grandmother Hypertension Grandfather Hypertension Aunt Hypertension Uncle CVA (cerebral vascular accident) Other Crohn's colitis Diverticulitis Family history of high cholesterol Heart disease IBS (irritable bowel syndrome) Migraine Osteoarthritis Surgical History Hx of tonsillectomy Hx of knee surgery H/O rotator cuff surgery Social History household members: spouse and children housing: house current occupational status: employed Smoking Status: Current every day smoker tobacco type: cigarettes alcohol intake: current alcohol intake frequency: 0-2 drinks per day what type of physical activity do you participate in: none do you feel safe at home: Yes Review of Systems (Anesthesia) ROS Narrative System reviewed and no additional complaints, except as documented.
[2025-01-03] MEDS: Cefazolin 3 GM in 0.9% Normal Saline (100mL Bag) 100 ML IV (13:10)
[2025-01-03] MEDS: Gentamicin 80 MG/2 ML Vial (13:19)
[2025-01-03] MEDS: Bupiv/Epi 0.25% 30 ML Vial (13:19)
--- NOTE | 2025-01-03 15:48 | DCINST_ITS ---
Discharge Instructions Diet Discharge Diet: Light diet - advance as tolerated Activity Discharge Activity: Return to Normal Activity and May Shower May shower in (days): 1 Ice area for (Minutes): 30 Lifting Restrictions: No lifting over 20 pounds for 6 weeks Dressing / Incision Call your doctor if your incision/area has: Continuous Slow Oozing, Sudden In creased Bleeding, Increased Pain/ Swelling, Increased Redness, Foul Smelling Discharge and Swelling at the incision site Call your doctor if you observe: Fever of 101 or Higher Remove Dressing in: 3 days Cleanse incision/area with: Soap & Water Follow Up Care Please Follow Up With: Larry Tripp MD When: 2 weeks. Please call office to schedule appointment Test Results: Test results from this visit will be discussed in further detail at your follow- up appointment, if applicable. Discharge Plan Admission Primary Reason for Your Visit: Umbilical hernia Attending Provider: Larry Tripp Primary Care Provider: Grace Stephens NP Instructions Print Language: Spanish Discharge Orders/Prescriptions Prescriptions: New oxycodone-acetaminophen [Percocet] 5-325 mg tablet 1 tab PO Q8H PRN (Reason: pain) 3 Days Qty: 10 0RF Continued aspirin 81 mg tablet,delayed release (DR/EC) 81 mg PO DAILY amlodipine 5 mg tablet 5 mg PO DAILY Qty: 30 12RF famotidine 40 mg tablet 40 mg PO DAILY Qty: 30 12RF fenofibrate nanocrystallized 145 mg tablet 145 mg PO DAILY Qty: 30 12RF lansoprazole 30 mg capsule,delayed release(DR/EC) 30 mg PO QHS Qty: 30 12RF montelukast 10 mg tablet 10 mg PO QHS Qty: 30 12RF omega-3 fatty acids 1,000 mg capsule 3,000 mg PO DAILY Qty: 90 12RF Ventolin HFA 90 mcg/actuation HFA aerosol inhaler 2 puff inhalation Q4H PRN (Reason: asthma) 30 Days Qty: 8 12RF multivitamin [Daily Multi-Vitamin] Tablet 1 tab PO DAILY cetirizine [24Hour Allergy] 10 mg tablet 10 mg PO DAILY PRN (Reason: allergies) Referrals / Follow Up: Grace Stephens NP, TRAVEL REGISTERED NURSE PACU-C [Primary Care Provider] - Disposition Disposition (needs filled in before D/C Order can be placed): Home, Self Care
--- NOTE | 2025-01-03 15:53 | OP.PCM_ITS ---
Procedures Digestive 40xxx-49xxx: 61328 RPR AA HRN 11-01 [facility] Operative Report (Standard) Operative Information Date of Procedure: 01/03/25 Pre-Operative Diagnosis: Umbilical hernia Post-Operative Diagnosis: Umbilical hernia Surgery/Procedure Performed: Robotic umbilical hernia repair with mesh anesthesiology teacher: Yes Site Safety Coordinator: Keyona Sanches Tasks completed by medical library assistant: Closing, Trocar and Other Additional assistant manager quality management?: No Type of Anesthesia: General and Local RN Documented Start/Stop Times: Operation Date: 01/03/25 13:00 Case Time Into Pre-Op 01/03/25 11:40 Anesthesia Start 01/03/25 13:00 Into Room 01/03/25 13:00 Out of Pre-Op 01/03/25 13:00 Procedure Start 01/03/25 13:19 Procedure Start Time: 13:19 Procedure Stop Time: 15:55 Select all DRAINS/GRAFTS/IMPLANTS that apply: Prosthetic device Prosthetic device details: ProGrip mesh 10 x 10 cm Special Medications: 3 g Ancef IV preop Estimated Blood Loss: 30 mL Specimen collected: No Description of surgery: The patient is a 44-year-old male who was seen through the office recently with an umbilical hernia. He has had this for years but this was causing him increasing pain and discomfort. We discussed repair. He wished to proceed. He was brought the operating room today following informed consent I had offered him a robotic umbilical hernia repair with mesh. We discussed the risks, benefits and alternatives to surgery. He wished to proceed. He was brought to the operating room today following informed consent. Antibiotics were given and a timeout was performed. He was placed supine on the operative table with arms outstretched and arm boards. A general endotracheal anesthesia was induced. Once adequately sedated his arms were comfortably tucked at his side. The abdomen was prepped and draped in the usual sterile manner. A 5 mm incision was made laterally on the left side of the abdomen. Through this incision a 5 mm trocar was placed optically. This was placed without incident. Once in place the abdomen was then fully insufflated with CO2 gas. A 5 mm 0 degree scope was inserted. There were no signs of bowel or vascular injury. Next 2 additional trocars were placed also on the left side of the abdomen 1 was placed in the left upper quadrant and 1 was placed in the left lower quadrant. Both of these trocars were 8 mm trocars. These were placed under direct visualization without difficulty. The original 5 mm trocar was switched to a 8 mm trocar as well. The da Richard robot was then wheeled into position and was docked. The hernia was clearly visible. This was containing fat which was easily reduced. Next a subperitoneal plane was then developed using electrocautery and scissors. A flap was then created and extended towards the midline. Once at the midline the hernia sac was encountered. This was quite chronic. The overall hernia was about 5 mm in size. We were able to finally get the sac from the overlying skin. The flap was then created to the contralateral side. This was large enough to accommodate the mesh. Once this was performed a 10 x 15 piece of mesh was trimmed down to 10 x 10 cm. This was inserted into the abdomen. Before applying the mesh, the fascial defect was then closed using a strata fix suture in a running manner. Once this was performed the mesh was then laid into position. This covered over the fascial defect nicely. The peritoneum was then closed in a running manner using V-Loc suture. The peritoneum was then. A couple areas were then closed using 3-0 Vicryl placed in an interrupted manner. Overall the peritoneum closed fairly nicely. Once this was performed all counts and sutures were removed and counts were all correct. The incisions were then closed with 4-0 Vicryl. Skin glue was applied as dressing. A sterile cottonball and an OpSite were applied to the umbilicus . Abdominal binder was also applied. He was awakened from anesthesia and taken to recovery in good condition Surgical Findings: Chronic fat-containing umbilical hernia --5 cm overall size Complications Complications: No Admit VTE Documentation VTE Present on Admission: No VTE Mechan Device Prophylaxis: SCD's VTE Pharm Prophylaxis ordered?: No Reason prophylaxis not ordered: Treatment Not Indicated
--- NOTE | 2025-01-03 16:11 | PCM.POST.ANE ---
Anesthesia: Postop Eval I Current Vital Signs Temperature: 99.1 F Pulse Rate: 103 Blood Pressure: 143/91 Respiratory Rate: 24 Pulse Ox: 94 Oxygen Delivery Method: Venturi Mask Oxygen Flow Rate (L/min): 8 Assessment Airway patent: Yes Spontaneous unlabored respirations: Yes Mental status: Asleep nausea: No Vomiting: No Anesthesia Complication: No Fluid Hydration Crystalloid volume administer (ml): 1,600 Total IV fluid infused: 1,600 Progress Note Anesthesia document: Postop Eval 1 completed: Yes
--- NOTE | 2025-01-03 18:31 | POSTOPAN2_ITS ---
Anesthesia Postop Eval I Sum Postop Eval Completion status Anesthesia document: Postop Eval 1 completed: Yes Anesthesia Postop Eval I Summary Anesthesia Postop Eval I Summary: Anesthesia Postop Eval I: Assessment Summary Airway patent Yes 01/03/25 16:12 [email or web address] Spontaneous unlabored Yes 01/03/25 16:12 SUPERVISOR [email or web address] respirations Mental status Asleep 01/03/25 16:12 [email or web address] [email or web address] nausea No 01/03/25 16:12 [email or web address] [email or web address] Vomiting No 01/03/25 16:12 [email or web address] [email or web address] Anesthesia Postop Eval I: Fluid Summary Crystalloid volume administer 1,600 01/03/25 16:12 [email or web address] (ml) Colloids volume administered ( ml) Blood Product volume administered (ml) Total IV fluid infused 1,600 01/03/25 16:12 [email or web address] Anesthesia Postop Eval I: Summary Notes Anesthesia Complication No 01/03/25 16:12 [email or web address] Anesthesia Complication Comment: Post-operative progress note Anesthesia: Postop Eval II Evaluation Mental status: Awake and Calm Pain Level: 1 nausea: No Vomiting: No Progress Note Post-operative progress note: In PACU patient did have some depressed saturations and mild wheezing. DuoNeb breathing treatment given with much improved symptoms. Complications Anesthesia Complication: No
--- NOTE | 2025-01-03 18:31 | PCM.POSTANE2 ---
Anesthesia Postop Eval I Sum Postop Eval Completion status Anesthesia document: Postop Eval 1 completed: Yes Anesthesia Postop Eval I Summary Anesthesia Postop Eval I Summary: Anesthesia Postop Eval I: Assessment Summary Airway patent Yes 01/03/25 16:12 [email or web address] Spontaneous unlabored Yes 01/03/25 16:12 [email or web address] respirations Mental status Asleep 01/03/25 16:12 [email or web address] nausea No 01/03/25 16:12 [email or web address] Vomiting No 01/03/25 16:12 [email or web address] [email or web address] Anesthesia Postop Eval I: Fluid Summary Crystalloid volume administer 1,600 01/03/25 16:12 [email or web address] (ml) Colloids volume administered ( ml) Blood Product volume administered (ml) Total IV fluid infused 1,600 01/03/25 16:12 [email or web address] Anesthesia Postop Eval I: Summary Notes Anesthesia Complication No 01/03/25 16:12 [email or web address] Anesthesia Complication Comment: Post-operative progress note Anesthesia: Postop Eval II Evaluation Mental status: Awake and Calm Pain Level: 1 nausea: No Vomiting: No Progress Note Post-operative progress note: In PACU patient did have some depressed saturations and mild wheezing. DuoNeb breathing treatment given with much improved symptoms. Complications Anesthesia Complication: No
== END 2025-01-03 18:26 | disposition home or self-care (01) ==
LOC: SDC 11:36 → AC 11:38
PROVIDERS: PCP Nurse Practitioner; Referring Provider Surgery; Visit Provider Surgery
PROC: (CPT 49593; principal; 2025-01-03 12:40)
DX: K42.9 Umbilical hernia without obstruction or gangrene (principal); F17.210 Nicotine dependence, cigarettes, uncomplicated; K21.9 Gastro-esophageal reflux disease without esophagitis; Z79.82 Long term (current) use of aspirin; I10 Essential (primary) hypertension
CPT/HCPCS: 49593; S2900; 00830; C1781; J2405

== ENCOUNTER → 2025-06-07 | Outpatient (CLI) | payer MEDICAID, SELFPAY ==
[2025-06-07 22:35] LABS: Hematocrit 40.7 % (40-54); Hemoglobin 13.8 g/dL (13.0-16.5); Immature Granulocytes Count 0.040 X10^3/uL (0.0-0.0); Mean Corp Hgb Conc 33.9 g/dL (32-36); Mean Corpuscular Volume 87.0 fL (80-94); Mean Platelet Vol. 11.4 fl (6.2-12.0); NRBC Flagged by Analyzer 0 % (0-5); Platelet Count 185 K/mm3 (150-450); RBC Distribution Width CV 13.2 % (11.6-14.6); RBC Distribution Width SD 42.4 fl (35.1-43.9); Red Blood Count 4.68 M/mm3 (4.6-6.2); White Blood Count 9.8 K/mm3 (4.4-11.0)
[2025-06-07 22:53] LABS: AST(SGOT) 66 U/L (<=37); Alanine Aminotransfer ALT/SGPT 81 U/L (<=46); Albumin, Serum 4.6 g/dL (3.5-5.0); Alkaline Phosphatase 95 U/L (40-129); Anion Gap 13 (5-15); BUN 19 mg/dL (4-19); BUN/Creat Ratio 27.9 RATIO (10-20); Calcium,Total 10.1 mg/dL (7.6-11.0); Carbon Dioxide 24.1 mmol/L (21.0-32.0); Chloride 99 mmol/L (98-108); Cholesterol 209 mg/dL (<=200); Globulin 3.1 g/dL (2.2-4.2); Glucose 130 mg/dL (70-99); Low Density Lipoprotein Calc. 58 mg/dL; Potassium 4.0 mmol/L (3.3-5.1); Triglycerides 576 mg/dL; Very Low Density Lipoprotein 115 mg/dL (5-40); cholesterol:hdl ratio screen 5.87
== END | disposition home or self-care (01) ==
PROVIDERS: PCP Nurse Practitioner; Visit Provider Nurse Practitioner
DX: E11.65 Type 2 diabetes mellitus with hyperglycemia (principal); K21.00 Gastro-esophageal reflux disease with esophagitis, without bleeding; I10 Essential (primary) hypertension; E78.1 Pure hyperglyceridemia; D51.9 Vitamin B12 deficiency anemia, unspecified
CPT/HCPCS: 80053; 80061; 83036; 85025